=== PATIENT | male | born 1985 | race Caucasian/White ===

== ENCOUNTER 2020-07-10 10:39 | Observation (INO) | payer OTHER ==
[~2020-07-10] VITALS: Ht 170.2 cm; Wt 86.4 kg
[2020-07-10] VITALS (7 sets, daily range): BP systolic 117–162; BP diastolic 67–141; Ht 170.2 cm; Wt 86.4 kg
[2020-07-10 11:08] LABS: BASOPHILS 0.2 % (0-2); EOSINOPHILS 0.1 % (0-7); HEMATOCRIT 49.3 % (42.0-54.0); HEMOGLOBIN 17.2 g/dL (13.5-17.5); IMMATURE GRANULOCYTES 0.4 % (0-5); LYMPHOCYTES 9.9 % (15-50); MCHC 34.9 g/dL (31.0-37.0); MCV 97.4 fL (80.0-100.0); MEAN PLATELET VOLUME 8.7 fL (7.4-10.4); MONOCYTES 5.4 % (2-11); PLATELET COUNT 311 10x3/uL (130-400); RBC 5.06 10x6/uL (4.20-6.10); RDW 12.5 % (11.5-14.5); WBC 13.1 10x3/uL (4.8-10.8)
[2020-07-10 11:17] LABS: APTT 21.9 SECONDS (22.8-39.4); CALC OSMOLALITY 276 mosm/kg (275-300); CALCIUM 8.6 mg/dL (8.5-10.1); CARBON DIOXIDE 20.5 mmol/L (21.0-32.0); CHLORIDE - SERUM 101 mmol/L (98-107); CREATININE - SERUM 1.4 mg/dL (0.6-1.3); GLUCOSE 125 mg/dL (74-106); INR 0.93 (0.85-1.17); POTASSIUM - SERUM 4.2 mmol/L (3.5-5.1); PROTIME 12.4 SECONDS (11.6-15.0); SODIUM 139 mmol/L (136-145); UREA NITROGEN 8 mg/dL (7-18); eGFR NON AFRICAN AMERICAN 62 mL/min (90-120)
[2020-07-10 11:53] LABS: UDS - AMPHET POSITIVE QUAL (NEGATIVE); UDS - BARB NEGATIVE QUAL (NEGATIVE); UDS - BENZO NEGATIVE QUAL (NEGATIVE); UDS - COCAINE NEGATIVE QUAL (NEGATIVE); UDS - OPIATE NEGATIVE QUAL (NEGATIVE); UDS - PCP NEGATIVE QUAL (NEGATIVE); UDS - THC NEGATIVE QUAL (NEGATIVE)
[2020-07-10 12:01] LABS: BILIRUBIN NEGATIVE (NEGATIVE); KETONE NEGATIVE (NEGATIVE); NITRITE NEGATIVE (NEGATIVE); UROBILINOGEN NORMAL mg/dL (< 2)
[2020-07-10 12:02] LABS: BACTERIA FEW HPF (NONE SEEN); EPITHELIAL CELLS 0-5 /hpf (0-5); WHITE CELLS - URINE 0-5 HPF (0-1)
[2020-07-10 12:04] LABS: ALBUMIN 4.3 g/dL (3.4-5.0); ALKALINE PHOSPHATASE 74 U/L (30-120); ALT (SGPT) 73 U/L (10-68); CKMB 6.7 U/L (0.0-3.6); CREATINE KINASE 455 UL (21-232); PROTEIN - SERUM 8.1 g/dL (6.4-8.2); TROPONIN-I < 0.017 ng/mL (0.000-0.060)
--- NOTE | 2020-07-10 18:27 | NUR ---
MEAL TRAY TO PT. PT EATING.
[2020-07-11] VITALS: BP 121/79
--- NOTE | 2020-07-11 00:38 | NUR ---
SPOKE WITH BECKY ALVARADO, PT CESAR D/C
[2020-07-11 00:58] LABS: CKMB 8.3 U/L (0.0-3.6); CREATINE KINASE 776 UL (21-232); TROPONIN-I < 0.017 ng/mL (0.000-0.060)
[2020-07-11 01:00] VITALS: BP 119/75
[2020-07-11 02:00] VITALS: BP 116/75
[2020-07-11 03:00] VITALS: BP 132/75
[2020-07-11 04:00] VITALS: BP 130/71
[2020-07-11 04:47] LABS: BASOPHILS 0.2 % (0-2); EOSINOPHILS 0.7 % (0-7); HEMATOCRIT 47.5 % (42.0-54.0); HEMOGLOBIN 16.3 g/dL (13.5-17.5); IMMATURE GRANULOCYTES 0.1 % (0-5); LYMPHOCYTES 17.1 % (15-50); MCH 33.7 pg (26.0-34.0); MCHC 34.3 g/dL (31.0-37.0); MCV 98.3 fL (80.0-100.0); MEAN PLATELET VOLUME 8.6 fL (7.4-10.4); MONOCYTES 10.2 % (2-11); NEUTROPHILS 71.7 % (40-80); RBC 4.83 10x6/uL (4.20-6.10); RDW 12.6 % (11.5-14.5)
--- NOTE | 2020-07-11 04:47 | NUR ---
PT UP TO BATHROOM AT THIS TIME.
[2020-07-11 04:48] LABS: PLATELET COUNT 226 10x3/uL (130-400); WBC 8.1 10x3/uL (4.8-10.8)
[2020-07-11 05:00] VITALS: BP 142/80
[2020-07-11 05:16] LABS: ALBUMIN 3.9 g/dL (3.4-5.0); ALKALINE PHOSPHATASE 63 U/L (30-120); ALT (SGPT) 61 U/L (10-68); BILIRUBIN - TOTAL 1.55 mg/dL (0.2-1.3); CALC OSMOLALITY 267 mosm/kg (275-300); CALCIUM 8.9 mg/dL (8.5-10.1); CARBON DIOXIDE 24.2 mmol/L (21.0-32.0); CHLORIDE - SERUM 103 mmol/L (98-107); CKMB 6.3 U/L (0.0-3.6); CREATINE KINASE 778 UL (21-232); CREATININE - SERUM 1.1 mg/dL (0.6-1.3); GLUCOSE 89 mg/dL (74-106); MAGNESIUM - SERUM 2.2 mg/dL (1.8-2.4); POTASSIUM - SERUM 4.5 mmol/L (3.5-5.1); PROTEIN - SERUM 7.1 g/dL (6.4-8.2); SODIUM 135 mmol/L (136-145); TROPONIN-I 0.021 ng/mL (0.000-0.060); UREA NITROGEN 9 mg/dL (7-18); eGFR NON AFRICAN AMERICAN 82 mL/min (90-120)
--- NOTE | 2020-07-11 08:55 | NUR ---
PT DC'S IV ET STATES TO THIS RN HE IS LEAVING AMA. PT DOES SIGN AMA FORM. THIS RN ATTEMPTED TO ENCOURAGE PT TO STAY ET PT REFUSED. PT STATED HE IS WITH THE AND HE DOESN'T HAVE TO STAY IF HE CHOOSES NOT TO. DR. SHARPE NOTIFIED.
== END 2020-07-11 08:55 | disposition home or self-care (01) ==
LOC: EDBD 10:39 → D.ER 10:39 → D.MS 17:49 → D.EDHOLD 17:49 → D.MS 17:49 → OBSVTIME 17:49 → D.EDHOLD 19:12
PROVIDERS: Family Medicine; ADMIT Family Medicine; ATTEND Family Medicine
DX: I47.1 Supraventricular tachycardia (principal); F15.90 Other stimulant use, unspecified, uncomplicated; Z72.89 Other problems related to lifestyle; F41.8 Other specified anxiety disorders; N17.9 Acute kidney failure, unspecified; R74.0 Nonspecific elevation of levels of transaminase and lactic acid dehydrogenase [LDH]; D72.829 Elevated white blood cell count, unspecified; M62.82 Rhabdomyolysis; E86.0 Dehydration